=== PATIENT | male | born 1995 | race Caucasian/White ===

== ENCOUNTER → 2017-05-30 | Outpatient (CLI) | payer BC ==
--- NOTE | 2017-05-30 15:17 | KCIC ---
MR of the left knee Indication: Anterior pain since November or December. Technique: The standard multiplanar sequences are obtained. Findings: Medial meniscus:Intact. Lateral meniscus: Mild signal at the posterior horn lateral meniscus near the root, seen on the single coronal and a single sagittal image, compatible with a small tear. Anterior cruciate ligament: Deficiency of the proximal fibers, compatible with high-grade tear. There is some laxity of the distal fibers. No acute Pivot shift type bone injuries. Posterior cruciate ligament: Intact Medial collateral ligament: Intact. Iliotibial band: Intact. Posterolateral structures: Fibular collateral ligament, biceps tendon and popliteus tendon are intact. Extensor mechanism: Intact. Fluid: Small joint effusion. Articular cartilage -patellofemoral joint:Intact -medial compartment:Intact -lateral compartment:Intact Bones: No significant lesion or acute fracture. Soft tissue: Unremarkable Impression: 1. Anterior cruciate ligament tear, likely chronic. 2. Small tear at the posterior horn of the lateral meniscus. Electronically signed by: Reji Sandoval MD (05/30/2017 3:14 PM) [id number]
== END | disposition home or self-care (01) ==
LOC: KCIC MRI 14:30
DX: S83.512A Sprain of anterior cruciate ligament of left knee, initial encounter (principal); X58.XXXA Exposure to other specified factors, initial encounter; Y93.89 Activity, other specified; Y92.89 Other specified places as the place of occurrence of the external cause; Y99.8 Other external cause status
CPT/HCPCS: 73721

== ENCOUNTER → 2018-12-26 | Outpatient (CLI) | payer BC ==
--- NOTE | 2018-12-26 16:24 | KCIC ---
EXAM: MRI Right KNEE DATE: 12/26/2018 3:30 PM CLINICAL INDICATION: Right knee pain. Sports injury 3 months ago COMPARISON: None. TECHNIQUE: Multiplanar, multisequence MRI of the right knee was performed without contrast. FINDINGS: No significant knee joint effusion. No Mitchell's cyst. The PCL is intact. Although intact ACL fibers are seen, there is increased signal within the ACL with irregular morphology, suspicious for partial thickness tear. There is no abnormal anterior translation of the tibia relative to the femur. The fibers of the ACL remain parallel to the intercondylar roof. The MCL, fibular collateral ligament, biceps femoris and IT band are intact. Popliteus tendon is normal in signal and morphology, intact. Extensor mechanism is also intact. Neutral patellar tracking. Medial meniscus: Intact Lateral meniscus: Intact No evidence for fracture. Marrow edema at the posterior aspect of the lateral tibial plateau, likely bone contusion. IMPRESSION: 1. Thickening of the ACL with irregular morphology, likely partial thickness tear. 2. Contusion posterior aspect of the lateral tibial plateau. No acute fracture is seen. 3. No meniscal tear is seen. Electronically signed by: Ramirez Herrera MD (12/26/2018 4:21 PM) [id number]
== END | disposition home or self-care (01) ==
LOC: KCIC MRI 15:26
PROVIDERS: ATTEND Physician Assistant Medical
DX: S80.11XA Contusion of right lower leg, initial encounter (principal); X58.XXXA Exposure to other specified factors, initial encounter; Y93.89 Activity, other specified; Y92.89 Other specified places as the place of occurrence of the external cause; Y99.8 Other external cause status
CPT/HCPCS: 73721